=== PATIENT | female | born 1990 ===

== ENCOUNTER → 2018-11-18 | Outpatient (REF) | payer OTHER | LOC: M LAB LCGH 11:46 | PROVIDERS: ATTEND Obstetrics & Gynecology | DX: Z12.4 Encounter for screening for malignant neoplasm of cervix (principal); Z34.90 Encounter for supervision of normal pregnancy, unspecified, unspecified trimester ==

== ENCOUNTER → 2020-07-06 | Outpatient (CLI) | payer OTHER | LOC: M OUTALCOH 13:22 | PROVIDERS: ATTEND Psychiatry & Neurology Psychiatry | DX: Z03.89 Encounter for observation for other suspected diseases and conditions ruled out (principal) ==

== ENCOUNTER 2020-07-21 08:00 | Outpatient (RCR) | payer OTHER | END 2020-07-23 | LOC: M OUTALCOH 08:00 | PROVIDERS: ATTEND Psychiatry & Neurology Psychiatry | DX: Z03.89 Encounter for observation for other suspected diseases and conditions ruled out (principal); Z72.0 Tobacco use ==

== ENCOUNTER → 2024-01-29 | Outpatient (CLI) | payer OTHER | LOC: M OUTALCOH 07:51 | PROVIDERS: ATTEND Psychiatry & Neurology Psychiatry | DX: Z03.89 Encounter for observation for other suspected diseases and conditions ruled out (principal); F17.200 Nicotine dependence, unspecified, uncomplicated ==

== ENCOUNTER 2024-02-06 14:48 | Outpatient (RCR) | payer OTHER | END 2024-02-23 | LOC: M OUTALCOH 14:48 | PROVIDERS: ATTEND Psychiatry & Neurology Psychiatry | DX: Z03.89 Encounter for observation for other suspected diseases and conditions ruled out (principal); Z72.0 Tobacco use ==